=== PATIENT | male | born 1955 | race Caucasian/White ===

== ENCOUNTER → 2017-11-02 11:24 | Outpatient (CLI) | payer OTHER, SELFPAY ==
[2017-11-02 12:08] LABS: Add Manual Diff / Slide Review NO; Basophils Percent Auto 0.7 % (0-2); Eosinophils Percent Auto 4.7 % (2-4); Hemoglobin 16.5 g/dL (13.5-17.5); Lymphocytes Percent Auto 32.4 % (25-40); Mean Corpuscular HGB Conc 34.3 % (30-36); Mean Corpuscular Hemoglobin 31.3 PG (26-34); Mean Corpuscular Volume 91.3 fL (80-100); Monocytes Percent Auto 8.1 % (3-14); Neutrophils Absolute Auto 3600 /uL (3000-5900); Neutrophils Percent Auto 54.1 % (50-75); Platelet Count 243 X10^3/uL (150-400); Red Blood Cell Count 5.26 X10^6/uL (4.5-5.9); White Blood Cell Count 6.6 X10^3/uL (4.5-11.0)
[2017-11-02 14:25] LABS: Alanine Aminotransferase 24 IU/L (21-72); Albumin 3.9 g/dL (3.5-5.0); Albumin Globulin Ratio 1.3 (1.0-2.8); Alkaline Phosphatase 67 U/L (38-126); Aspartate Aminotransferase 24 IU/L (17-59); BUN Creatinine Ratio 22.5 (6-22); Bilirubin Total 0.7 mg/dL (0.2-1.3); Blood Urea Nitrogen 18 mg/dL (9-20); Calcium 9.2 mg/dL (8.4-10.2); Carbon Dioxide 24 mmol/L (22-32); Chloride 103 mmol/L (98-107); Estimated Glomerular Filt Rate > 60.0 mL/min (>60); Globulin 3.1 g/dL (1.7-4.1); Glucose 78 mg/dL (80-110); HEMOLYSIS < 15 (0-50); Lipase 86 U/L (23-300); Potassium 4.6 mmol/L (3.4-5.1); Sodium 139 mmol/L (137-145)
== END ==
PROVIDERS: PCP Family Medicine; Visit Provider Surgery
DX: K80.20 Calculus of gallbladder without cholecystitis without obstruction (principal)
CPT/HCPCS: 36415; 80053; 83690; 85025; 99213

== ENCOUNTER 2017-11-08 06:56 | Day surgery (SDC) | payer OTHER, SELFPAY ==
[2017-11-04 08:11] VITALS: BMI 29.5
[2017-11-08] VITALS (9 sets, daily range): BP systolic 96–120; BP diastolic 64–80; PULSE 68–87; RESP 12–17; TEMP 36.1–36.5; O2SAT 96–100; BMI 29.5
--- NOTE | 2017-11-08 | PATH_ITS ---
[facility] Accession Number: [id number] . 01 Material submitted: . GALLBLADDER . 02 Diagnosis: Gallbladder: Cholelithiasis with associated chronic cholecystitis. I/11/10/2017 . 02 Electronically signed: . Sudhakar Melara MD, Pathologist NPI- [id number] . 01 Gross description: . Received in formalin, labeled 1) Gallbladder, is an intact gallbladder (length-6.7 cm, diameter-3.5 cm) with pettit-green smooth shiny serosa and a patent cystic duct. No lymph nodes are identified. The lumen contains dark green viscous bile and multiple yellow-green solid rough calculi (3.8 x 2.0 x 1.5 cm in aggregate, ranging 0.9 x 0.7 x 0.3 cm-2.0 x 1.8 x 1.8 cm) with essie cut surfaces. The mucosa is green, smooth and flat. The wall is up to 0.1 cm thick. No nodules, masses or lesions are identified. Section code: (A1) cystic duct resection margin and two serial sections from the body; (A2) two longitudinal sections from the fundus. ([id number]) /MRV . 02 Pathologist provided ICD-10: K80.64 . 02 CPT . 143646 Performed at: 01 [facility] [address] [facility] [place], [place], [place] [id number] MD Narciso Loving MD Phone: [phone] Performed at: 02 [facility] [address] [place], [place] [id number] MD Elias Grigsby MD Phone: [phone]
--- NOTE | 2017-11-08 07:04 | PM.PREOP ---
Pre-operative Note Interval Note Pre-op Check: History & Physical Reviewed by Physician and Exam Performed H&P completed within 30 days and has changed as indicated here:: Patient seen and examined today. No changes to H and P as documented on 11/02/2017. Proceed as planned with cholecystectomy today.
[2017-11-08] MEDS: LACTATED RINGERS 1,000 ML 42 ML IV (07:41)
[2017-11-08] MEDS: CEFAZOLIN 2 GM/100 ML FROZ.PIGGY IV (08:03)
--- NOTE | 2017-11-08 08:41 | SUR.OPER ---
Supine on padded OR bed, head on pillow, arms secured on padded arm boards at <90 degrees abduction, legs uncrossed, safety belt at thigh, tape over blanket over lower legs.
[2017-11-08] MEDS: BUPIVACAINE 0.5% (PF) 30 ML VIAL INJ (08:56)
[2017-11-08] MEDS: LIDOCAINE 1% W/EPI INJ 20 ML INJ (08:57)
--- NOTE | 2017-11-08 09:45 | PM.OP.1 ---
Operative Date/Time/Diagnoses - Date of procedure: 11/08/17 Time of procedure: 09:45 Pre-op diagnosis: Symptomatic cholelithiasis with chronic cholecystitis Post-op diagnosis: same Procedure & Clinicians Procedure: Laparoscopic cholecystectomy Same procedure as scheduled: Yes Indications: 62-year-old male who recently presented to the emergency department at an [facility] with severe right upper quadrant abdominal pain consistent with biliary colic. He has had a long history of known gallstones. Because of his symptoms and evidence of chronic cholecystitis he was recommended to undergo laparoscopic cholecystectomy. Surgeon: Edwin Zhou Click Yes if Unassisted: Yes Anesthesia Type: General Operative Notes Findings: 1. Reducible umbilical hernia primarily repaired at closure at the end of the case 2. Grossly normal liver, stomach, peritoneum, small bowel, and colon within the limits of laparoscopy 3. Chronically inflamed gallbladder with significant adhesions to omentum and duodenum 4. Aberrant prominent right hepatic artery densely associated with posterior wall of the infundibulum of the gallbladder giving rise to very short cystic artery 5. Cholelithiasis Closure Type: primary Specimen(s): other (Gallbladder) Implants & Drains: None Estimated Blood Loss (mL): 25 Blood products transfused: none Procedure in detail: Patient brought to the operating room after obtaining informed consent and placed supine on the table. After satisfactory induction of anesthesia the abdomen was prepped and draped in usual sterile fashion. A SCOAP time-out was performed per standard protocol. A 1 1 mixture 1% lidocaine with 1 100,000 epinephrine and 0.25% plain Marcaine was injected in the skin and subcutaneous tissue at the superior aspect of the umbilicus overlying a reducible hernia sac. Curvilinear incision was created at the superior aspect of the umbilicus with a 11 scalpel blade. Blunt dissection revealed the rectus fascia and a reducible hernia sac. Hernia sac was opened and excised sharply with Metzenbaum scissors. Edges of the fascia around the hernia defect were then secured with Oralia clamps and elevated into the operative field. Two individual interrupted 0 Vicryl sutures were placed superiorly and inferiorly through the fascia. Underlying peritoneum was entered through the hernia sac followed by a 12 mm blunt Sena trocar. Carbon dioxide pneumoperitoneum was created and the abdomen was explored with a 30 degree 5 mm laparoscoped. Findings were as above. Patient was placed in reverse Trendelenburg position and local anesthesia was injected in the epigastric region just below the xiphoid were a 5 mm trocar was inserted. In a similar fashion 2 individual 5 mm trocars were placed in the right lateral abdomen. Fundus of the gallbladder was secured with a ratcheted grasper and retracted superiorly and medially over the edge of the liver. Meticulous blunt dissection using a [place] dissector, Micheal graspers, and laparoscopic Kittner dissector was performed in order to take down the adhesions as described above. Infundibulum of the gallbladder was secured with a Micheal grasper and retracted inferiorly and laterally. Meticulous dissection in the triangle of Calot was then performed there by skeletonizing the cystic duct and cystic artery. The junction of the gallbladder with both structures was clearly identified and the critical view of the liver bed through the avascular plane posterior to the cystic duct was obtained. Three clips were placed proximally on both structures then 1 distally near the gallbladder. Laparoscopic scissors was employed to divide both structures. Further blunt dissection with a Kitner dissect her was performed and no other critical structures were identified. The right hepatic artery was bluntly dissected away from the gallbladder. Adhesions between the gallbladder and liver bed were then taken down with monopolar cautery. Hemostasis was achieved in the gallbladder was retrieved through the umbilical incision after placing it in an endo-pouch. Specimen was sent for permanent section. Liver bed was irrigated with copious amounts of sterile saline solution which was suctioned from the abdomen and noted to be clear. Liver bed was noted to be hemostatic. Previously placed clips were also in good position. No evidence of hemorrhage or bile leak was noted. Patient was returned to supine position in the right upper quadrant irrigated once again. Irrigant returned clear. Hemostasis was again verified. Instruments and trocars were removed under laparoscopic visualization. Hemostasis was again verified and the carbon dioxide was evacuated. Fascia at the umbilical hernia site was then closed with 3 individual interrupted 0 Vicryl suture. Skin at all 4 incisions was then closed in a subcuticular running fashion using 4 0 Monocryl suture. Dermal adhesive was applied to the skin. Anesthesia was reversed the patient extubated in the operating room. He was taken recovery in stable condition. Complications: none Condition: stable Disposition: PACU Plan for aftercare: 1. Discharge home 2. Follow up in surgery Clinic in 2 weeks
--- NOTE | 2017-11-08 10:00 | SUR.PHASEI ---
stable pacu stay, incision with skin adhesive remained c/d/i. started on applesauce and medicated with po pain meds,
[2017-11-08] MEDS: OXYCODONE/ACETAMINOPHEN 5/325 TABLET 1 TAB PO (10:03)
--- NOTE | 2017-11-08 10:34 | SUR.PHASEII ---
pt brought to opd, brought in, instructions discussed, both voiced an understanding, went to get prescription filled. call [facility] with pt, pt aware not to get oob w/o assist of staff.
--- NOTE | 2017-11-08 11:13 | SUR.PHASEII ---
returned with meds no questions, pt dressed when ready and left in stable condition.
== END 2017-11-08 11:15 | disposition home or self-care (01) ==
PROVIDERS: Family Provider Family Medicine; PCP Family Medicine; Visit Provider Surgery
PROC: 0FT44ZZ Resection of Gallbladder, Percutaneous Endoscopic Approach (ICD-10-PCS; CPT 47562; principal; 2017-11-08 07:45)
DX: K80.10 Calculus of gallbladder with chronic cholecystitis without obstruction (principal); K82.8 Other specified diseases of gallbladder; E78.5 Hyperlipidemia, unspecified; G47.00 Insomnia, unspecified
CPT/HCPCS: 47562; J0690; J1885; J2250; J2405; J2704; J3010

== ENCOUNTER 2022-07-16 06:53 | Day surgery (SDC) | payer MEDICARE, OTHER, SELFPAY ==
--- NOTE | 2022-07-16 | PATH_ITS ---
[facility] Accession Number: [id number] No. of containers..02 Tissue . 01 Material submitted: . PART A: colon - ASCENDING COLON POLYP PART B: rectum - RECTAL POLYP . 01 Diagnosis: A. Ascending Colon Polyp, Biopsy: Tubular adenoma. . B. Rectum, Polyp, Biopsy: Colonic mucosa with features suggestive of mucosal prolapse and a small benign lymphoid aggregate. Additional levels were examined. V 07/23/2022 1757 Local . 01 Electronically signed: . Della Hutchinson MD, Pathologist NPI- [id number] . 01 Gross description: . A. Received in formalin, labeled with the patient's name, , and ascending colon polyp, and consists of two denton soft tissue fragments ranging from 0.2 cm to 0.3 cm in greatest dimension. Submitted entirely in cassette A1. B. Received in formalin, labeled with the patient's name, , and rectal polyp, and consists of two denton soft tissue fragments ranging from 0.4 cm to 0.5 cm in greatest dimension. Submitted entirely in cassette B1. ([id number]) /[place] 07/17/2022 1319 Local . 01 Pathologist provided ICD-10: D12.2 . 01 CPT . 357435, 395500 Specimen Comment: A courtesy copy of this report has been sent to [facility] Performed at: 01 [facility] [address] [place] [address], [place], [place] [id number] MD Narciso Loving MD Phone: [phone]
[2022-07-16] MEDS: LACTATED RINGERS 1,000 ML 100 ML IV (07:34)
[2022-07-16 07:36] VITALS: BP 106/69; PULSE 80; RESP 16; TEMP 36.3; O2SAT 97
--- NOTE | 2022-07-16 07:48 | PM.HP.1 ---
History of Present Illness History of Present Illness Date Patient Seen: 07/16/22 Chief complaint: SDC Narrative: Patient presents today for screening colonoscopy. His 1st colonoscopy was at 47 years old that was done because they believed he had an episode of diverticulitis. That was fine and he has been on a 10 year plan ever since. It is time for his screening again. He does not have any alarming symptoms and no family history of colon cancer. Patient History Medical History (Updated 07/16/22 @ 07:49 by Colleen Moy MD) Cholelithiasis Hyperlipidemia Insomnia Osteoarthritis Umbilical hernia Surgical History Status post ORIF of fracture of ankle Family & Social History Social History: household members spouse Tobacco & Substance use: Smoking Status Never smoker alcohol intake current alcohol intake frequency 0-2 drinks per day Substance Use Type does not use Meds Home Medications and Allergies Home Medications Medication Instructions Recorded Confirmed Type celecoxib 100 mg capsule (Celebrex) 100 mg PO BID 11/02/17 07/16/22 History zolpidem 5 mg tablet (Ambien) 5 mg PO BEDTIME PRN Sleep 11/02/17 07/16/22 History Allergies Allergy/AdvReac Type Severity Reaction Status Date / Time adhesive Allergy Rash, Verified 07/16/22 07:29 severe itching No Known Allergies Allergy Uncoded 07/16/22 07:29 Exam Vital Signs (past 8 hours): - 07/16/22 07:36 Temperature 97.3 F L Pulse Rate 80 Respiratory Rate 16 Blood Pressure 106/69 Pulse Oximetry 97 Oxygen Delivery Method Room Air Oxygen Delivery Method Room Air Const General: cooperative, healthy appearing and comfortable HENMD Head: normal to inspection Resp Effort & Inspection: normal respiratory effort and able to speak in complete sentences GI Palpation: soft and No tender Assessment & Plan Assessment and plan (1) Screening for colon cancer: Status: Acute Assessment & Plan narrative: I discussed the risks benefits and alternatives of a screening colonoscopy including but not limited to perforation of the colon and incomplete exam the patient understands and would like to proceed today. Time Spent With Patient Critical Care time: I spent a total of [] minutes of critical care time on this patient's care today; this time is exclusive of procedural time.
[2022-07-16 08:20] VITALS: BP 91/65; PULSE 68; TEMP 36.9; O2SAT 96
[2022-07-16 08:25] VITALS: BP 94/61; PULSE 75; RESP 24; O2SAT 96
[2022-07-16 08:28] VITALS: BP 107/78; PULSE 71; RESP 20; TEMP 36.6; O2SAT 98
--- NOTE | 2022-07-16 08:28 | PM.OP.COLON ---
Operative Date/Time/Diagnoses Date of procedure: 07/16/22 Pre-op diagnosis: Screening for colon cancer Post-op diagnosis: same Procedure & Clinicians Study performed: Colonoscopy with biopsy Same procedure as scheduled: Yes Indications: Screening for colon cancer Surgeon: Colleen Moy Procedure Notes Procedure in detail: Patient was taken to the endoscopy suite and placed in a left lateral decubitus position. A time-out was performed. Conscious sedation with the help of anesthesiologist was induced. A digital rectal exam was performed there were no masses or strictures. The colon.oscope was introduced into the rectum anal canal and advanced through the colon to the cecum. A photograph was taken of the appendiceal orifice. Of note in the sigmoid colon there were few scattered diverticula photographs were taken of these. They appeared normal. Withdrawal time was 16 minutes and 2 biopsies were taken in the ascending colon a small polyp was biopsied with forceps and removed in total a 2nd very small rectal polyp was removed as well. The colonoscope was retroflexed and a photograph of the hemorrhoidal piles was obtained. Patient tolerated the procedure well and went in good condition to the postoperative care unit Specimen(s): other (1. Ascending colon polyp 2. Rectal polyp) Complications: none
[2022-07-16 08:30] VITALS: BP 112/81; PULSE 66; RESP 16; O2SAT 97
--- NOTE | 2022-07-16 08:49 | SUR.PHASEII ---
Unable to reach spouse, Lacie, at provided number [phone] or patient's cell [phone]. Patient notified. Sitting up in chair, dressed. Water provided.
--- NOTE | 2022-07-16 08:56 | SUR.PHASEII ---
Spouse called back. IV discontinued.
== END 2022-07-16 08:52 | disposition home or self-care (01) ==
PROVIDERS: Family Provider Family Medicine; PCP Family Medicine; Referring Provider Surgery; Visit Provider Surgery
PROC: 0DJD8ZZ Inspection of Lower Intestinal Tract, Via Natural or Artificial Opening Endoscopic (ICD-10-PCS; CPT 45378; principal; 2022-07-16 07:45)
DX: Z12.11 Encounter for screening for malignant neoplasm of colon (principal); K64.4 Residual hemorrhoidal skin tags; K57.30 Diverticulosis of large intestine without perforation or abscess without bleeding; D12.1 Benign neoplasm of appendix
CPT/HCPCS: 45380; J2704; J3010

== ENCOUNTER 2024-05-12 05:14 | Emergency (ER) | payer MEDICARE, OTHER, SELFPAY ==
[2024-05-12 05:21] VITALS: BP 115/73; PULSE 67; RESP 14; TEMP 36.5; O2SAT 98; BMI 29.0
--- NOTE | 2024-05-12 05:33 | ED_ITS ---
HPI - Male Genitourinary General Chief complaint: Urogenital-Male Stated complaint: burst blood vessel in penis Time Seen by Provider: 05/12/24 05:17 Source: patient Mode of arrival: Ambulatory History of Present Illness HPI Narrative: 69-year-old male with history of Peyronie's disease, upward curvature deformity of the penis, being treated by [facility] neurologist Dr. Raya, had 1st Xiaflex injection on Tuesday, 2nd Xiaflex injection , then manipulation the following day Tuesday 2 days ago exercises went flaccid, also when erect with the bending down maneuver, last night Tuesday he would another bending down maneuver of his penis with an erection in the Jacuzzi tub, no intercourse, this morning woke up and touched his penis, was going to start bending down when he noticed that it was quite swollen and bruised, left lateral aspect. Last urination this morning. No known blood from the penile urethra. Related Data Home Medications Medication Instructions Recorded Confirmed Cialis 05/12/24 atorvastatin 10 mg tablet 10 mg PO DAILY 05/12/24 05/12/24 zolpidem 10 mg tablet 5 mg PO DAILY 05/12/24 05/12/24 Allergies Allergy/AdvReac Type Severity Reaction Status Date / Time No Known Drug Allergies Allergy Verified 05/12/24 05:18 Patient History Medical History (Updated 05/12/24 @ 06:21 by Kike Oneill MD) Insomnia Umbilical hernia Osteoarthritis Hyperlipidemia Cholelithiasis Surgical History Status post ORIF of fracture of ankle Social History household members: spouse Smoking Status: Never smoker alcohol intake: current Smoking Status: Never smoker alcohol intake frequency: 0-2 drinks per day Alcohol type: beer and wine Exam Narrative Exam Narrative: GENERAL: Well-developed patient, in mild distress. HEAD: Atraumatic. Normocephalic. EYES: Pupils equal round and reactive. Extraocular motions intact. No scleral icterus. No injection or drainage. ENT: Nose without bleeding, purulent drainage. Throat without erythema, tonsillar hypertrophy or exudate. Airway patent. NECK: Trachea midline. Non tender CARDIOVASCULAR: Regular rate and rhythm without murmurs, gallops, or rubs. RESPIRATORY: Clear to auscultation. Breath sounds equal bilaterally. No wheezes, rales, or rhonchi. GASTROINTESTINAL: Abdomen soft, non-tender, nondistended. Genitourinary: Circumcised appearing male genitalia, dorsal and left-sided hematoma a penile shaft, no obvious coronal laceration or edema, no blood at meatus EXTREMITIES: No edema or joint tenderness. BACK: Nontender without deformity or crepitance. No flank tenderness. NEURO: AOx3. Motor functions grossly nonfocal SKIN: No rash or erythema of visible areas Initial Vital Signs Initial Vital Signs: Vital Signs Temperature 97.7 F 05/12/24 05:21 Pulse Rate 67 05/12/24 05:21 Respiratory Rate 14 05/12/24 05:21 Blood Pressure 115/73 05/12/24 05:21 Pulse Oximetry 98 05/12/24 05:21 Oxygen Delivery Method Room Air 05/12/24 05:21 Course Vital Signs Vital signs: Vital Signs - 8 hr 05/12/24 05:21 05/12/24 06:27 Temperature 97.7 F Pulse Rate 67 71 Respiratory Rate 14 16 Blood Pressure 115/73 119/76 Pulse Oximetry 98 96 Oxygen Delivery Method Room Air Room Air MDM - Male Genitourinary MDM Narrative Medical decision making narrative: 69-year-old male with Peyronie's disease status post dorsal Xiaflex injections, manipulation of the penis both flaccid and interactive, last manipulation the night prior, was about to bend his penile shaft this morning when he felt that it was swollen, on exam has hematoma of the penile shaft dorsal and left, apparently able to urinate. He has not attempted to contact his urologist. Here for evaluation 0610, case discussed with Dr. Banks, no popping sensation, cross [facility] urologists for Dr. Raya, consider cavernosum fracture but there was no popping sound or sensation, she would treat conservatively for now. She will touch base with Dr. Duarte who will call back. Advises discharged home for now. Discharge Plan Departure Patient Disposition: Home Clinical Impression: Hematoma of penis Activity Restrictions/Additional Instructions: History of Peyronie's disease, status post dorsal penile injection by urologist Alyssia Raya, subsequent manipulation, last manipulation erect yesterday, this morning noted to have swelling of the penis dorsally into the left side, without any popping sensation or known other trauma. Able to urinate. Case discussed with cross covering urologist Dr. Banks, who took down your information, and was relayed to Dr. Duarte, with intent for you to be discharged home, and be contacted in the next couple of hours to see how doing. Did not further manipulate the penis for now. Further follow up later this morning with your urology team in [facility] as above. Return to this/nearest emergency department for any change worsening symptoms or any concerns prior Prescriptions: No Action zolpidem 10 mg tablet 5 mg PO DAILY atorvastatin 10 mg tablet 10 mg PO DAILY Britni Referrals: Shashi Richardson MD [Primary Care Provider] - Stand Alone Forms: Patient Portal/API/Survey
--- NOTE | 2024-05-12 05:36 | PC.NURSE ---
Pt being seen by Dr. Raya at [facility] U[facility] clinic in [place]. Phone number [phone].
--- NOTE | 2024-05-12 05:54 | PC.NURSE ---
Called Pt Urology office at [phone] left message for oncall provider to call clinic back. Provider Dr. Oneill notified of waiting for return call.
[2024-05-12 06:27] VITALS: BP 119/76; PULSE 71; RESP 16; O2SAT 96
== END 2024-05-12 06:27 | disposition home or self-care (01) ==
PROVIDERS: Emergency Provider Emergency Medicine; Family Provider Family Medicine; PCP Family Medicine
DX: N48.89 Other specified disorders of penis (principal)
CPT/HCPCS: 99281